=== PATIENT | female | born 1930 | race Caucasian/White ===

== ENCOUNTER 2017-02-06 20:20 | Inpatient (IN) ==
[2017-02-06] MEDS ORDERED: ONDANSETRON 4 MG/2 ML VIAL IV STA (21:01)
[2017-02-06] MEDS ORDERED: SODIUM CHLORIDE 0.9% 500 ML IV STA (21:01)
[2017-02-06] MEDS ORDERED: ASPIRIN 325 MG TABLET PO STA (21:01)
[2017-02-06] MEDS ORDERED: ASPIRIN 325 MG TABLET ONE (21:10)
[2017-02-06] MEDS ORDERED: ONDANSETRON 4 MG/2 ML VIAL ONE (21:10)
[2017-02-06 21:53] LABS: Basophils # 0.1 10*3/uL (0.0-0.2); Basophils % 1.3 % (0.0-0.8); Eosinophils # 0.1 10*3/uL (0.0-0.87); Eosinophils % 2.7 % (0.00-10.9); Hematocrit 35.1 VOL% (35.7-47.0); Hemoglobin 11.4 GM/DL (12.0-16.0); Lymphocytes # 1.5 10*3/uL (1.4-4.0); Lymphocytes % 39.1 % (21.3-54.2); Mean Corpuscular HGB Conc 32.5 GM/DL (32-36); Mean Corpuscular Hemoglobin 25 PG (27-34); Mean Corpuscular Volume 78.2 FL (87-102); Mean Platelet Volume 9.7 FL (9.6-12.0); Monocytes # 0.3 10*3/uL (0.11-0.8); Monocytes % 7.4 % (1.7-12.7); Neutrophils # 1.9 10*3/uL (1.4-7.4); Neutrophils % 49.5 % (38.7-73.9); Platelet Count 338 T/CUMM (130-400); Red Blood Count 4.49 MC/CUMM (3.8-5.5); Red Cell Distribution Width 14.2 % (9.3-17.3); White Blood Count 3.8 T/CUMM (4-12)
[2017-02-06 22:03] LABS: PT Patient Result 10.7 SECS; Partial Thromboplastin Time 27.6 SECS (0-40)
[2017-02-06 22:16] LABS: Apearance,Urine CLEAR (Clear); Barbiturates Screen,Urine Negative (Negative); Benzodiazepines Screen,Urine Negative (Negative); Bilirubin,Urine Negative (Negative); Blood, Urine Negative (Negative); Cannabinoid Screen,Urine Negative (Negative); Glucose,Urine (UA) Negative (Negative); Ketones,Urine Negative (Negative); Nitrite,Urine Negative (Negative); Opiate Screen,Urine Negative (Negative); Phencyclidine Screen,Urine Negative (Negative); Protein,Urine Negative; RBC,Urine 1 /HPF (0-4); Squamous Epithelial Cell,Urine Occasional /HPF (0-10); Urine Color Yellow (Yellow); Urine Specific Gravity 1.008 (1.001-1.035); Urine Urobilinogen < 2.0 EU/DL (0.2-1.0); WBC,Urine 3 /HPF (0-6)
[2017-02-06 22:18] LABS: Alanine Aminotransferase 19 U/L (13-56); Albumin 3.3 G/DL (3.4-5.0); Alkaline Phosphatase 90 U/L (45-117); Aspartate Amino Transferase 10 U/L (0-37); Bilirubin,Total < 0.39 MG/DL (0.2-1.0); Blood Urea Nitrogen 16 MG/DL (7-18); Calcium 9.6 MG/DL (8.5-10.1); Glucose 93 MG/DL (74-106); Osmolality,Calculated 279.4 MOS/KG (273-304); Potassium 4.4 MMOL/L (3.5-5.1); Sodium 140 MMOL/L (136-145); Total Protein 6.2 G/DL (6.4-8.3); Troponin I Only < 0.015 NG/ML (0.00-0.045)
[2017-02-06] MEDS ORDERED: cefTRIAXone 1,000 MG in SODIUM CHLORIDE 0.9% 100 ML IV STA (22:18)
[2017-02-07] MEDS ORDERED: HYDROmorphone 2 MG/1 ML VIAL IV PRN (00:23)
[2017-02-07] MEDS ORDERED: ACETAMINOPHEN 325 MG TABLET PO PRN ×2 (00:23)
[2017-02-07] MEDS ORDERED: ONDANSETRON 4 MG/2 ML VIAL IV PRN (00:23)
[2017-02-07] MEDS: cefTRIAXone 1,000 MG in SYRINGE 1 EACH IV SCH (02:55)
[2017-02-07] MEDS: SODIUM CHLORIDE 0.9% 1,000 ML IV SCH ×2 (02:59→14:44)
[2017-02-07 04:55] LABS: Basophils # 0.1 10*3/uL (0.0-0.2); Basophils % 1.5 % (0.0-0.8); Eosinophils # 0.1 10*3/uL (0.0-0.87); Eosinophils % 3.6 % (0.00-10.9); Hematocrit 29.7 VOL% (35.7-47.0); Hemoglobin 9.7 GM/DL (12.0-16.0); Lymphocytes # 1.7 10*3/uL (1.4-4.0); Lymphocytes % 50.4 % (21.3-54.2); Mean Corpuscular HGB Conc 32.7 GM/DL (32-36); Mean Corpuscular Hemoglobin 26 PG (27-34); Mean Corpuscular Volume 78.4 FL (87-102); Mean Platelet Volume 9.8 FL (9.6-12.0); Monocytes # 0.3 10*3/uL (0.11-0.8); Monocytes % 8.6 % (1.7-12.7); Neutrophils # 1.2 10*3/uL (1.4-7.4); Neutrophils % 35.9 % (38.7-73.9); Platelet Count 308 T/CUMM (130-400); Red Blood Count 3.79 MC/CUMM (3.8-5.5); Red Cell Distribution Width 14.2 % (9.3-17.3); White Blood Count 3.4 T/CUMM (4-12)
[2017-02-07 05:33] LABS: Albumin 2.9 G/DL (3.4-5.0); Bilirubin,Total 0.5 MG/DL (0.2-1.0); Calcium 9.1 MG/DL (8.5-10.1); Eosinophils 4 % (0-10); Giant Platelets Few; Hypochromasia 1+; Lymphocytes 43 % (20-55); Platelet Estimate Adequate; Potassium 4.7 MMOL/L (3.5-5.1); Risk Ratio 2.59; Segmented Neutrophils 46 % (50-85); Total Cells Counted 100; Total Protein 5.2 G/DL (6.4-8.3); VLDL CHOLESTEROL 16.6 MG/DL
[2017-02-07 05:34] LABS: Atypical Lymphocytes Few; Ovalocytes Slight
[2017-02-07] MEDS ORDERED: PANTOPRAZOLE 40 MG VIAL IV SCH (09:00)
[2017-02-07] MEDS ORDERED: RIVAROXABAN 20 MG TABLET PO SCH (09:00)
[2017-02-07] MEDS: PANTOPRAZOLE 40 MG TABLET PO SCH (09:15)
[2017-02-07] MEDS: DOCUSATE SODIUM 100 MG CAPSULE PO SCH ×2 (09:15→21:24)
[2017-02-07] MEDS: SODIUM CHLORIDE 5% OPH SOLN 15 ML BOTTLE RIGHT EYE SCH ×3 (09:15→21:24)
[2017-02-07] MEDS: TIMOLOL 0.5% OPH SOLN 5 ML BOTTLE LEFT EYE SCH (09:15)
[2017-02-07] MEDS: prednisoLONE ACETATE 1% OPH SUSP 5 ML BOTTLE LEFT EYE SCH ×2 (09:15→21:24)
[2017-02-07] MEDS: LOSARTAN 50 MG TABLET PO SCH (09:15)
[2017-02-07 12:14] LABS: 25 Hydroxy Vitamin D Total 13.2 NG/ML; Folate 18.6 NG/ML (5.4-24.0)
[2017-02-07] MEDS ORDERED: ASPIRIN EC 81 MG TABLET PO SCH (19:00)
[2017-02-07] MEDS ORDERED: DOCUSATE SODIUM 100 MG CAPSULE PO SCH (19:00)
[2017-02-07] MEDS ORDERED: POTASSIUM CHLORIDE 20 MEQ TABLET PO SCH (21:00)
[2017-02-07] MEDS: APIXABAN 5 MG TABLET PO SCH (21:24)
[2017-02-08] MEDS: cefTRIAXone 1,000 MG in SYRINGE 1 EACH IV SCH (00:57)
[2017-02-08] MEDS: SODIUM CHLORIDE 0.9% 1,000 ML IV SCH ×2 (01:02→05:41)
[2017-02-08] MEDS: APIXABAN 5 MG TABLET PO SCH (08:25)
[2017-02-08] MEDS: LOSARTAN 50 MG TABLET PO SCH (08:25)
[2017-02-08] MEDS: SODIUM CHLORIDE 5% OPH SOLN 15 ML BOTTLE RIGHT EYE SCH (08:25)
[2017-02-08] MEDS: TIMOLOL 0.5% OPH SOLN 5 ML BOTTLE LEFT EYE SCH (08:25)
[2017-02-08] MEDS: DOCUSATE SODIUM 100 MG CAPSULE PO SCH (08:25)
[2017-02-08] MEDS: prednisoLONE ACETATE 1% OPH SUSP 5 ML BOTTLE LEFT EYE SCH (08:25)
[2017-02-08] MEDS: PANTOPRAZOLE 40 MG TABLET PO SCH (08:25)
[2017-02-08 12:01] VITALS: BP 122/70
[2017-02-09] MEDS ORDERED: ATORVASTATIN 10 MG TABLET PO SCH (09:00)
== END 2017-02-08 15:03 | DRG 65 ==
LOC: EDBD → EDUNIT# → N.ED 20:20 → N.EDINP 23:21 → N.TELES 23:40
PROVIDERS: ADMIT Family Medicine; ATTEND Family Medicine